=== PATIENT | male | born 1995 | race Two or more races ===

== ENCOUNTER 2019-07-20 11:05 | Emergency (ER) | payer MEDICAID, OTHER ==
[~2019-07-20] VITALS: Ht 177.8 cm; Wt 127.0 kg
[2019-07-20 12:01] VITALS: BP 155/95
[2019-07-20] MEDS ORDERED: LIDOCAINE 1% HCL (LOCAL ANESTH.) INJ 20ML MDV ONE (13:11)
[2019-07-20] MEDS ORDERED: BACITRACIN TOP OINT 1 UD PKG TOP ONE (13:15)
[2019-07-20] MEDS ORDERED: LIDOCAINE 1% HCL (LOCAL ANESTH.) INJ 20ML MDV IJ ONE (13:15)
[2019-07-20] MEDS ORDERED: TETANUS-DIPTH-ACEL PERTUSSIS 0.5ML SYRG IM ONE (13:15)
== END 2019-07-20 13:41 | disposition home or self-care (01) ==
LOC: ER 11:05
DX: S61.511A Laceration without foreign body of right wrist, initial encounter (principal); J45.909 Unspecified asthma, uncomplicated; Z90.49 Acquired absence of other specified parts of digestive tract; W26.8XXA Contact with other sharp object(s), not elsewhere classified, initial encounter; Y93.89 Activity, other specified; Y92.89 Other specified places as the place of occurrence of the external cause; Y99.8 Other external cause status
CPT/HCPCS: 12002; 90471; 90715; 99283; J2001

== ENCOUNTER 2019-08-02 08:32 | Emergency (ER) | payer MEDICAID ==
[~2019-08-02] VITALS: Ht 177.8 cm; Wt 127.0 kg
[2019-08-02 08:54] VITALS: BP 154/89
== END 2019-08-02 09:14 | disposition home or self-care (01) ==
LOC: ER 08:32
DX: S61.511D Laceration without foreign body of right wrist, subsequent encounter (principal); J45.909 Unspecified asthma, uncomplicated; X58.XXXD Exposure to other specified factors, subsequent encounter

== ENCOUNTER 2020-05-14 14:48 | Emergency (ER) | payer OTHER, MEDICAID ==
[~2020-05-14] VITALS: Ht 177.8 cm; Wt 136.1 kg
[2020-05-14 16:03] VITALS: BP 150/91
== END 2020-05-14 16:06 | disposition home or self-care (01) ==
LOC: ER 14:48
DX: S16.1XXA Strain of muscle, fascia and tendon at neck level, initial encounter (principal); R51 Headache; J45.909 Unspecified asthma, uncomplicated; V73.5XXA Driver of bus injured in collision with car, pick-up truck or van in traffic accident, initial encounter; Y93.I9 Activity, other involving external motion; Y92.481 Parking lot as the place of occurrence of the external cause; Y99.8 Other external cause status